=== PATIENT | male | born 1970 | race Hispanic/Latino ===

== ENCOUNTER 2018-06-25 12:03 | Outpatient (CLI) | payer OTHER ==
--- NOTE | 2018-06-25 14:05 | RAD ---
PA AND ALTERAL VIEWS CHEST: History Severe reactive airways disease without complications. FINDINGS: Comparison is made with the exam of 11/26/2012. The heart size is normal. The lungs are expanded without lobar consolidation, pneumothoraces, or ple ural effusions. There is plate of linear atelectasis in the left mid lung. There are mild degenerat mayra changes in the spine. POS: [facility]
--- NOTE | 2018-06-25 14:05 | RAD ---
SINUSES 3 VIEWS: HISTORY: Severe reactive airways disease without complication. FINDINGS/IMPRESSION: The paranasal sinuses are well aerated. No air fluid levels are seen. POS: [facility]
== END 2018-06-25 12:04 | disposition home or self-care (01) ==
LOC: BICRAD 12:03
PROVIDERS: ATTEND Internal Medicine
DX: J45.50 Severe persistent asthma, uncomplicated (principal)
CPT/HCPCS: 70220; 71046